=== PATIENT | male | born 1990 | race Caucasian/White ===

== ENCOUNTER 2023-03-01 20:26 | Emergency (ER) | payer OTHER ==
[~2023-03-01] VITALS: Ht 175.3 cm; Wt 77.1 kg
[2023-03-01 20:36] VITALS: BP_SYST 122
[2023-03-01 21:45] VITALS: BP_SYST 138
== END 2023-03-01 21:55 | disposition home or self-care (01) ==
LOC: SED 20:26
DX: K62.5 Hemorrhage of anus and rectum (principal); R14.0 Abdominal distension (gaseous); Z79.899 Other long term (current) drug therapy
CPT/HCPCS: 82272; 99281; 99283